=== PATIENT | male | born 1940 | race Caucasian/White ===

== ENCOUNTER → 2020-07-25 09:15 | Outpatient (CLI) | payer MEDICARE, OTHER, SELFPAY ==
--- NOTE | 2020-07-25 | DI.MRI.S_ITS ---
PROCEDURE: MR WRIST RT WO CON INDICATIONS: Pain in right wrist TECHNIQUE: Noncontrast coronal proton density fast spin echo and T2 fast spin echo with fat saturation; coronal 3-D gradient echo, axial T1 spin echo and T2 fast spin echo with fat saturation, sagittal T1 spin echo through the wrist. COMPARISON: None. FINDINGS: Image quality: Excellent. Bones and cartilage: The carpal bones are normally aligned. No bone marrow contusions or fractures. No evidence for avascular necrosis. 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 Nonspecific subcortical cyst formations scattered in carpal bones are seen. Carpal ligaments: The scapholunate and lunotriquetral ligaments appear intact. In the absence of intra-articular contrast, the extrinsic carpal ligaments are not well identified. On sagittal images, the pisohamate ligament appears intact. Triangular fibrocartilage complex: Signal abnormality involving triangular fibrocartilage near its ulnar insertion is seen concerning for low-grade partial-thickness tear. The adjacent meniscal homolog appears normal in the absence of intra-articular contrast. The extensor carpi ulnaris tendon is mildly thickened at the level of ulnar styloid. Tendons and soft tissues: The carpal tunnel structures appear normal, including the median nerve. The ulnar nerve appears normal within Guyon's canal. All six extensor tendon compartments demonstrate normal morphology, without pathologic tendon sheath fluid. No soft tissue ganglion cysts. IMPRESSION: 1. 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 No marrow edema. No fracture or dislocation. 2. Suggestion of triangular fibrocartilage tear near its ulnar insertion. 3. Tendinosis involving extensor carpi ulnaris tendon at the level of ulnar styloid. Rest of the extensor and flexor tendons are grossly intact. 4. Intrinsic and extrinsic wrist ligaments are grossly intact. Dictated by: Vargas Garcia M.D. on 07/25/2020 at 12:08 Approved by: Vargas Garcia M.D. on 07/25/2020 at 13:03
== END ==
PROVIDERS: PCP Family Medicine; Referring Provider Family Medicine; Visit Provider Family Medicine
DX: M25.531 Pain in right wrist (principal)
CPT/HCPCS: 73221